=== PATIENT | male | born 1975 | race Caucasian/White ===

== ENCOUNTER 2017-12-30 16:16 | Emergency (ER) | payer SELFPAY ==
[2017-12-30] MEDS ORDERED: Sodium Chloride 0.9% 1,000 ML ONE (18:02)
[2017-12-30] MEDS ORDERED: Sodium Chloride 0.9% 1,000 ML IV ONE (18:02)
--- NOTE | 2017-12-30 18:02 | C.PDOC ---
History Of Present Illness 42 y/o male presents to the ED complaining of ETOH withdrawal. Last major use was 4 days ago. Patient states he took a shot yesterday to help lessen the symptoms but still reports persistent nausea, vomiting, with clear emesis. Also complaining of diffuse myalgias and shakes. Patient states trying to self-detox. Denies seizures. Denies other drug use. <Renée Ramirez - Last Filed: 12/30/17 18:51> History Per: Patient History/Exam Limitations: no limitations Onset/Duration Of Symptoms: Days Current Symptoms Are (Timing): Still Present Modifying Factor(s): Alcohol Associated Symptoms: Other (withdrawal) <Renée Ramirez - Last Filed: 12/30/17 18:51> <Andria Blancas - Last Filed: 12/31/17 01:05> <Racheal Fitzpatrick - Last Filed: 12/31/17 01:28> Time Seen by Provider: 12/30/17 17:46 Chief Complaint (Nursing): Substance Abuse Past Medical History Reviewed: Historical Data, Nursing Documentation, Vital Signs Vital Signs: Last Vital Signs Temp 98.2 F 12/30/17 16:24 Pulse 112 H 12/30/17 16:24 Resp 18 12/30/17 16:24 BP 177/98 H 12/30/17 16:24 Pulse Ox 96 12/30/17 16:24 Family History: States: No Known Family Hx - Social History Hx Alcohol Use: Yes Hx Substance Use: No - Immunization History Hx Tetanus Toxoid Vaccination: No Hx Influenza Vaccination: No Hx Pneumococcal Vaccination: No <Renée Ramirez - Last Filed: 12/30/17 18:51> Vital Signs: Last Vital Signs Temp 98.2 F 12/30/17 16:24 Pulse 92 H 12/30/17 20:16 Resp 20 12/30/17 20:16 BP 148/102 H 12/30/17 20:16 Pulse Ox 97 12/30/17 20:16 <Andria Blancas - Last Filed: 12/31/17 01:05> Vital Signs: Last Vital Signs Temp 98.2 F 12/30/17 16:24 Pulse 93 H 12/30/17 22:59 Resp 18 12/30/17 22:59 BP 154/95 H 12/30/17 22:59 Pulse Ox 95 10/09/18 22:59 <Racheal Fitzpatrick - Last Filed: 12/31/17 01:28> Review Of Systems Except As Marked, All Systems Reviewed And Found Negative. Constitutional: Negative for: Fever Gastrointestinal: Positive for: Nausea, Vomiting. Negative for: Hematemesis Musculoskeletal: Positive for: Other (shakes, generalized myalgias) Neurological: Negative for: Seizures, Altered Mental Status Psych: Positive for: Withdrawal (from alcohol). Negative for: Suicidal i deation, Other (homicidal ideation) <Renée Ramirez - Last Filed: 12/30/17 18:51> Physical Exam - Physical Exam Appears: Toxic (mildly toxic), In Acute Distress (moderate distress) Skin: Warm, Dry, No Jaundice Head: Atraumatic, Normacephalic Eye(s): bilateral: Normal Inspection, Other (anicteric) Tongue: Other (+ Tongue fasciculations) Neck: Normal ROM Chest: Symmetrical Cardiovascular: Rhythm Regular (tachycardic) Respiratory: Normal Breath Sounds, No Rales, No Rhonchi, No Wheezing, Other (NARD) Gastrointestinal/Abdominal: Soft, No Tenderness, No Distention, No Guarding Extremity: Bilateral: Atraumatic, Normal ROM Pulses: Left Radial: Normal, Right Radial: Normal Neurological/Psych: Oriented x3, Normal Speech, Other (No focal deficits; Calm, cooperative, +withdrawal) <Renée Ramirez Last Filed: 12/30/17 18:51> ED Course And Treatment - Laboratory Results Result Diagrams: 12/30/17 18:17 12/30/17 18:17 ECG: Interpreted By Ri ECG Rhythm: Sinus Rhythm Interpretation Of ECG: TWI III, AVF; QTC 482 Rate From EC O2 Sat by Pulse Oximetry: 96 (RA) Pulse Ox Interpretation: Normal <Renée Ramirez Last Filed: 12/30/17 18:51> - Laboratory Results Result Diagrams: 12/30/17 18:17 12/30/17 18:17 Lab Interpretation: Abnormal (Bili 2.7) - CT Scan/US CT Head Other Rad Studies (CT/US): Read By Radiologist CT/US Interpretation: Name:TO CLEMENTE Exam Date:Dec 30, 2017 7:46:54 PM EDT. Modality Type:CT. Description:CT - ABDOMEN AND PELVIS WITH CORONAL AND SAGITTAL MPRS. Gender:M Laterality:Not applicable. :75 Referring Physician:Renée Ramirez MD. EXAM: CT Abdomen and Pelvis with IV contrast. CLINICAL HISTORY: VOMITING. H/O ETOH ABUSE,. TECHNIQUE: Axial computed tomography images of the abdomen and pelvis with intravenous contrast. CONTRAST: With intravenous contrast. COMPARISON: None provided. FINDINGS: LUNG BASES: Mild scarring at the lung bases. LIVER: Fatty infiltration of the liver. GALLBLADDER AND BILE DUCTS: The gallbladder appears distended. No radioopaque gallstones are seen. No biliary ductal dilatation is evident. PANCREAS: Mild fatty infiltration pancreas. SPLEEN: Unremarkable. ADRENAL GLANDS: Unremarkable. KIDNEYS, URETERS, AND BLADDER: The kidneys appear within normal limits. There is no hydronephrosis or hydroureter. No urinary calculi are seen. STOMACH AND BOWEL: Unremarkable appearance of the stomach and bowel. No evidence of bowel obstruction. No evidence suggesting enteritis or colitis. APPENDIX: No evidence of acute appendicitis on CT examination. PERITONEUM: No free fluid. No free air. LYMPH NODES: No lymphadenopathy is evident. REPRODUCTIVE: Prostate gland mildly enlarged. VASCULATURE: No evidence of abdominal aortic aneurysm. BONES: No aggressive appearing osseous lesion. No acute osseous pathology evident. IMPRESSION: Fatty infiltration of the liver. Distended gallbladder. Mild fatty infiltration of the pancreas. Mildly enlarged prostate gland. Progress Note: Patient is medically cleared for detox admission. Reevaluation Time: 21:40 Reassessment Condition: Improved (after IV fluids, Ativan, Zofran and Toradol. Patient is requesting admision for detox.) <Andria Blancas - Last Filed: 12/31/17 01:05> - Laboratory Results Result Diagrams: 12/30/17 18:17 12/30/17 18:17 Progress Note: Patient was cleared for discharge by dr andrade. Information was given to the pt re: [facility] -adresses and phone numbers <Racheal Fitzpatrick - Last Filed: 12/31/17 01:28> Progress - Re-Evaluation Re-evaluation Note: 12/30/17 18:02 D/W CRISIS JOSE WILL EVAL IN ER - Data Reviewed Data Reviewed: Lab, EKG, Old records - Critical Care Citical Care: Excluding Proc Time Critical Care Time: 90 minutes <Renée Ramirez - Last Filed: 12/30/17 18:51> Medical Decision Making Medical Decision Making: Impression: Detox, alcohol abuse Initial Plan: --Labs --EKG --CT abd/pelvis --IV fluids --Ativan 1 mg IVP --Toradol 30 mg IVP --Zofran 4 mg IVP --Pending crisis eval <JamesRenée - Last Filed: 12/30/17 18:51> Disposition - Disposition Disposition Time: 19:00 <Renée Ramirez - Last Filed: 12/30/17 18:51> - Disposition Disposition Time: 01:05 <Andria Blancas - Last Filed: 12/31/17 01:05> Counseled Patient/Family Regarding: Studies Performed, Diagnosis, Need For Followup <Racheal Fitzpatrick - Last Filed: 12/31/17 01:28> - Disposition Disposition: HOME/ ROUTINE Condition: FAIR Additional Instructions: Please follow up with [facility] Instructions: Alcohol Abuse and Alcoholism (DC) - Clinical Impression Clinical Impression: Alcohol dependence - Scribe Statement The provider has reviewed the documentation as recorded by the Scribe (Francia Marshall) Provider Attestation: All medical record entries made by the Scribe were at my direction and personally dictated by me. I have reviewed the chart and agree that the record accurately reflects my personal performance of the history, physical exam, medical decision making, and the department course for this patient. I have also personally directed, reviewed, and agree with the discharge instructions and disposition. <JamesRenée - Last Filed: 12/30/17 18:51> Physician Patient Turnover Patient Signed Over To: Andria Blancas Handoff Comments: FU CT, DISPO <JamesRenée - Last Filed: 12/30/17 18:51> Addendum Addendum: 12/30/17 19:00 Patient signed out to me by Dr. Ramirez, awaiting CT and lab results. 20:25 CT results reviewed and discussed with patient. <Andria Blancas - Last Filed: 12/31/17 01:05>
[2017-12-30 18:26] LABS: BASO % 0.4 % (0.0-2.0); EOS % 0.3 % (0.0-4.0); HEMOGLOBIN 16.9 g/dL (12.0-18.0); LYMPH # 1.1 K/uL (1.0-4.3); LYMPH % 12.4 % (20.0-40.0); MEAN CELL VOLUME 84.4 fL (80.0-94.0); MEAN CORPUSCULAR HEMOGLOBIN 29.5 pg (27.0-31.0); MEAN PLATELET VOLUME 9.2 fL (7.2-11.7); MONO # 0.7 K/uL (0.0-0.8); MONO % 8.1 % (0.0-10.0); NEUT # 7.2 K/uL (1.8-7.0); NEUT % 78.8 % (50.0-75.0); RBC 5.71 Mil/uL (4.40-5.90); RED CELL DISTRIBUTION WIDTH 12.7 % (11.5-14.5); WHITE BLOOD COUNT 9.2 K/uL (4.8-10.8)
[2017-12-30 18:36] LABS: ALB/GLOB RATIO 1.5 (1.0-2.1); ALBUMIN 4.8 g/dL (3.5-5.0); ALT/SGPT 49 U/L (21-72); AST/SGOT 57 U/L (17-59); BLOOD UREA NITROGEN 18 mg/dL (9-20); CALCIUM 9.7 mg/dl (8.6-10.4); GFR NON-AFRICAN AMERICAN > 60
[2017-12-30 19:22] LABS: SQUAMOUS EPITHIAL < 1 /hpf (0-5); URINE BILIRUBIN NEGATIVE (NEGATIVE); URINE BLOOD NEGATIVE (NEGATIVE); URINE CLARITY Clear (Clear); URINE COLOR Amber (YELLOW); URINE GLUCOSE (UA) NORMAL (Normal); URINE LEUKOCYTE ESTERASE NEG Leu/uL (Negative); URINE PROTEIN 2+ mg/dL (NEGATIVE)
[2017-12-30] MEDS ORDERED: Iohexol 300 100 ML IJ ONE (19:29)
[2017-12-30 19:31] LABS: BARBITURATES, UR NEGATIVE (NEGATIVE); BENZODIAZEPINES, UR NEGATIVE (NEGATIVE); OPIATES, UR NEGATIVE (NEGATIVE); PHENCYCLIDINE, UR NEGATIVE (NEGATIVE)
[2017-12-30 23:00] VITALS: RESP 18
[2017-12-31 01:40] VITALS: BP 141/97; PULSE 86; TEMP 97.9; O2SAT 96
--- NOTE | 2017-12-31 10:29 | CT ---
Date of service: 12/30/2017 PROCEDURE: CT Abdomen and Pelvis with contrast HISTORY: VOMITING, ELEV BILI HO ETOH ABUSE COMPARISON: None available TECHNIQUE: Contrast dose: 100 mL Omnipaque 300 Radiation dose: Total exam DLP = 1245.03 mGy-cm. This CT exam was performed using one or more of the following dose reduction techniques: Automated exposure control, adjustment of the mA and/or kV according to patient size, and/or use of iterative reconstruction technique. FINDINGS: LOWER THORAX: Bibasilar infiltrates. No visible pleural effusion or pneumothorax. LIVER: Hypoattenuation of the liver compatible with hepatic steatosis. GALLBLADDER AND BILE DUCTS: Gallbladder appears distended. No calcified gallstones identified. PANCREAS: Fatty atrophy of the pancreas. SPLEEN: 1.9 cm probable splenule. Otherwise unremarkable. ADRENALS: Unremarkable. KIDNEYS AND URETERS: The kidneys enhance symmetrically. No hydronephrosis or obstructing calculus identified. VASCULATURE: No aortic aneurysm. BOWEL: Stomach is nondistended. Lack of oral contrast limits evaluation for bowel pathology. Bowel loops appear within normal limits of caliber without evidence of obstruction. APPENDIX: The appendix appears within normal limits of caliber. No secondary signs of acute appendicitis. PERITONEUM: No significant free fluid. No definite free air. LYMPH NODES: No bulky adenopathy identified. BLADDER: Unremarkable. REPRODUCTIVE: Prostate gland measures approximately 3.2 x 5.6 cm. BONES: Mild degenerative changes. OTHER FINDINGS: None. IMPRESSION: Hypoattenuation of the liver compatible with hepatic steatosis. Gallbladder distension. No calcified gallstones identified. Fatty atrophy of the pancreas. Mildly enlarged prostate gland. Recommend correlation with PSA. Preliminary impression was provided by [facility].
--- NOTE | 2017-12-31 16:07 | CARD ---
APPROVED REPORT Date of service: 12/30/2017 EKG Measurement Heart [id number] <Conclusion> Normal sinus rhythm Prolonged QT Nonspecific T wave changes inferior leads Abnormal ECG
== END 2017-12-31 02:38 | disposition home or self-care (01) ==
LOC: C.ER 16:16
DX: F10.20 Alcohol dependence, uncomplicated (principal); Y90.9 Presence of alcohol in blood, level not specified
CPT/HCPCS: 74177; 80053; 81001; 83735; 84100; 85025; 93005; 96374; 96375; 99285; G0480; J1885; J2060; J2405; J7030; Q9967